=== PATIENT | male | born 1940 | race Caucasian/White ===

== ENCOUNTER 2016-11-16 09:51 | Outpatient (CLI) | payer MEDICARE, OTHER | END 2016-11-16 10:00 | LOC: CARD 09:51 | PROVIDERS: ATTEND Nurse Practitioner | DX: I25.10 Atherosclerotic heart disease of native coronary artery without angina pectoris (principal) | CPT/HCPCS: G0463 ==

== ENCOUNTER 2016-12-27 09:01 | Outpatient (CLI) | payer MEDICARE, OTHER | END 2016-12-27 09:02 | LOC: LAB 09:01 | PROVIDERS: ATTEND Family Medicine | DX: E11.9 Type 2 diabetes mellitus without complications (principal) | CPT/HCPCS: 36415; 83036 ==

== ENCOUNTER 2017-03-27 08:45 | Outpatient (CLI) | payer MEDICARE, OTHER ==
[2017-03-27 09:39] LABS: eGFR (African) > 60; eGFR (Non-African) > 60
== END 2017-03-27 08:46 ==
LOC: LAB 08:45
PROVIDERS: ATTEND Family Medicine
DX: E11.9 Type 2 diabetes mellitus without complications (principal); E55.9 Vitamin D deficiency, unspecified; E03.9 Hypothyroidism, unspecified
CPT/HCPCS: 36415; 80053; 80061; 82306; 83036; 84443

== ENCOUNTER 2017-06-27 08:44 | Outpatient (CLI) | payer MEDICARE, OTHER | END 2017-06-27 09:02 | LOC: LAB 08:44 | PROVIDERS: ATTEND Family Medicine | DX: E03.8 Other specified hypothyroidism (principal); E11.9 Type 2 diabetes mellitus without complications | CPT/HCPCS: 36415; 83036; 84443 ==

== ENCOUNTER 2017-10-30 11:34 | Outpatient (CLI) | payer MEDICARE, OTHER ==
[2017-10-30 11:51] LABS: BASOPHILS % 0.4 (0.0-1.5); EOSINOPHILS % 1.8 % (0.0-6.8); MEAN CORPUSCULAR HEMOGLOBIN 31.9 pg (28.0-34.0); MEAN CORPUSCULAR VOLUME 93.3 fl (80.0-100.0); MONOCYTES % 8.7 % (0.0-11.0); NEUTROPHILS # 6.7 # k/uL (1.4-7.7)
[2017-10-30 12:14] LABS: eGFR (African) > 60; eGFR (Non-African) > 60
--- NOTE | 2017-10-30 12:37 | Diagnostic Imaging Report ---
JULI CORONEL [facility] [address] [facility] [address] [place], [place]. [address] Report Submission Date: Oct 30, 2017 12:13:19 PM KAIAKO KURA KAUPAPA MAORI Patient Study Name: ISABELA HAWK Date: Oct 30, 2017 11:52:29 AM KAIAKO KURA [place] MAORI Modality Type: CR Gender: M Description: CHEST : 38 Institution: [facility] Physician: JULI CORONEL Examination: PA and lateral chest. History: Evaluate lung awad. Comparison exam: None provided. Findings: PA lateral chest demonstrate a normal cardiac and mediastinal silhouette. Vascular calcifications involving the aortic arch. Parenchymal infiltrate left lower lung. Significant blunting of the posterior sulci. Osseous structures are appropriate for age. Impression: Large left base consolidation/effusion. Electronically signed on Oct 30, 2017 12:13:19 PM KAIAKO KURA [place] MAORI by: Paulie HERNDON
--- NOTE | 2017-10-30 12:38 | Diagnostic Imaging Report ---
JULI CORONEL [facility] [address] [facility] [address] [place] [address]. [id number] Report Submission Date: Oct 30, 2017 12:16:19 PM SAFETY ATTENDANT Patient Study Name: ISABELA HAWK Date: Oct 30, 2017 11:57:09 AM SAFETY ATTENDANT Modality Type: CR Gender: M Description: ABDOMEN : 38 Institution: [facility] Physician: JULI CORONEL Examination: Obstruction series History: Abdominal discomfort Findings: 2 views obtained of the abdomen. No abnormal dilation of the large or small bowel. Stool throughout the large bowel most significantly within the ascending colon. No suspicious calcification projecting over the renal fossa or the lower pelvic region. Osseous structures demonstrate degenerative changes. Patent symphysis fixation hardware. Impression: Moderate amount of stool within the ascending colon. No obstruction. Electronically signed on Oct 30, 2017 12:16:19 PM SAFETY ATTENDANT by: Paulie HERNDON
== END 2017-10-30 11:35 ==
LOC: LAB 11:34
PROVIDERS: ATTEND Family Medicine
DX: R10.10 Upper abdominal pain, unspecified (principal); R05 Cough
CPT/HCPCS: 36415; 71020; 74000; 80053; 85025

== ENCOUNTER 2017-11-06 09:40 | Outpatient (CLI) | payer MEDICARE, OTHER ==
--- NOTE | 2017-11-06 12:39 | Diagnostic Imaging Report ---
[facility] [address] [facility].[address] [address] Report Submission Date: Nov 06, 2017 12:27:21 PM CAMP BOSS Patient Study Name: ISABELA HAWK Date: Nov 06, 2017 10:28:21 AM CAMP BOSS Modality Type: CT\SR Gender: M Description: CT CHEST W/ CONTRAST : 39 Institution: [facility] Physician: JULI CORONEL Examination: CT chest History: Chest infiltrate Comparison exams: Plain film dated 30 October 2017 Technique: CT chest with contrast protocol Findings: Large left effusion with significant compressive atelectasis. Smaller degree of right base linear atelectasis and vascular congestion. Scattered emphysematous changes. Anterior mediastinum and dylan are without gross mass or pathologic adenopathy. Thoracic aorta is without evidence for aneurysm. Minimal peripheral atherosclerotic disease. Cardiac silhouette upper limits normal. No pericardial effusion. Lower neck structures and upper abdominal organs are without gross abnormality. Thoracic spine degenerative spurring. Hiatal hernia. Impression: Large left consolidation/effusion. Smaller right base infiltrate/ congestive edema. Consider left diagnostic/therapeutic thoracentesis. No thoracic aortic abnormality. Hiatal hernia. Mild cardiomegaly. Electronically signed on Nov 06, 2017 12:27:21 PM CAMP BOSS by: Paulie HERNDON
== END 2017-11-06 09:50 ==
LOC: RAD 09:40
PROVIDERS: ATTEND Family Medicine
DX: R05 Cough (principal)
CPT/HCPCS: 71260; Q9967

== ENCOUNTER 2017-11-20 12:32 | Outpatient (CLI) | payer MEDICARE, OTHER ==
--- NOTE | 2017-11-20 13:52 | Diagnostic Imaging Report ---
JULI CORONEL [facility] [address] [facility] [address] [place] [address]. [id number] Report Submission Date: Nov 20, 2017 1:48:50 PM OUTSIDE PLANT ENGINEER Patient Study Name: ISABELA HAWK Date: Nov 20, 2017 1:00:02 PM OUTSIDE PLANT ENGINEER Modality Type: CT\SR Gender: M Description: CT ABD & PELVIS W/ CON : 38 Institution: [facility] Physician: JULI CORONEL Examination: CT Abdomen/pelvis History: Abdominal discomfort Comparison exams: CT chest dated 06 November 2017 Technique: CT Abdomen/pelvis with IV protocol. Findings: Liver demonstrates mild diffuse low attenuation. No central lesion. Spleen, adrenals, pancreas, kidneys and gallbladder are without gross irregularity. No abnormal enhancement. No gallstones. Mild renal cortical cyst. No suspicious calcifications. Ureters are nondilated in their course of the abdomen and pelvis. No central calcifications. Bladder margins within normal limits. Abdominal aorta demonstrates mild peripheral atherosclerotic disease. No aneurysm. Numerous periaortic lymph nodes associated with inflammatory changes. Cardiac silhouette is not enlarged. Pericardial thickening. Bowel unopacified limiting evaluation. No abnormal dilation. Stool within the large bowel limiting sensitivity. No free fluid. Appendix not visualized. Few sigmoid diverticula. No adjacent inflammation. Hiatal hernia. Osseous structures demonstrate degenerative changes. Lumbar curvature to the left. Pubic bone fusion. Lung bases demonstrates moderate to large sized left pleural effusion. Remaining lung awad demonstrates emphysematous changes and parenchymal scarring. Impression: Periaortic adenopathy and inflammation. No evidence for aortic aneurysm or dissection. No evidence for acute upper abdominal organ inflammatory process. Fatty liver. No gallstone. Renal cortical cysts. No suspicious calcifications. No abnormal ureteric dilation. No abnormal bowel dilation or inflammation. Hiatal hernia. Continued large left pleural effusion. Electronically signed on Nov 20, 2017 1:48:50 PM OUTSIDE PLANT ENGINEER by: Paulie HERNDON
== END 2017-11-20 12:33 ==
LOC: RAD 12:32
PROVIDERS: ATTEND Family Medicine
DX: R14.0 Abdominal distension (gaseous) (principal)
CPT/HCPCS: 74177; Q9967

== ENCOUNTER 2017-12-29 19:45 | Emergency (ER) | payer MEDICARE, OTHER ==
--- NOTE | 2017-12-29 20:03 | ED Physician Documentation ---
General Adult - HISTORIAN Historian: patient - HPI Stated Complaint: sob, lung cancer Chief Complaint: General Adult Onset: hours Timing: still present Severity: moderate Further Comments: yes (Pt is a 77 yo male with Stage IV lung cancer, dx'd last month. Pt had thought he only had pneumonia. Pt has a catheter into his pleural space on the L side so that he can drain pleural fluid at home. Tonight they drained 500 cc's fluid, but pt's felt that this was an incomplete drainage, since it is much less than they had been draining. She thinks a lot of fluid is still in the pleural space. Pt had trouble breathing service captain. He also c/o throat swelling and difficulty swallowing, which has been going on since he had bronchoscopy in the past weeks. He says it is difficult to swallow anything. Pt appears depressed and frustrated. He's talking about pulling his drain out and wonders if "somebody could kill me." Asked if he were suicidal, pt appeared to regret making that remark. He stated that he is to have a great-great grandson in a couple of months, and he wanted us [medical personnel] to keep him around for that.) - ROS CONST: other (malaise, depression) EYES/ENT: sore throat (difficulty swallowing s/p bronchoscopies) CVS/RESP: chest pain (L sided pain at drain to pleural space), shortness of breath GI/: none MS/SKIN/LYMPH: none NEURO/PSYCH: depression - PAST HX Past History: other (Stage IV lung cancer, DM, Thyroid d/o) Other History: other (ortho surgery, stents) Allergies/Adverse Reactions: Allergies Allergy/AdvReac Type Severity Reaction Status Date / Time No Known Allergies Allergy Unverified 12/29/17 20:51 Home Medications: Ambulatory Orders Medication Instructions Recorded Acetaminophen [Pain Relief Extra 500 mg PO PRN PRN 12/29/17 Strength] Cyclobenzaprine HCl 5 mg PO Q8H PRN 12/29/17 Folic Acid [Folvite] 1 mg PO DAILY 12/29/17 LORazepam [Ativan] 0.5 mg PO PRN PRN 12/29/17 Morphine Sulfate [Morphine Sulfate 100 mg PO Q12H PRN 12/29/17 ER] Omeprazole [Prilosec] 40 mg PO DAILY 12/29/17 - SOCIAL HX Smoking History: non-smoker - FAMILY HX Family History: No - REVIEWED ASSESSMENTS Nursing Assessment Reviewed: Yes Vitals Reviewed: Yes Progress - Progress Progress: CXR: Examination of the chest in PA and lateral views demonstrates a left pleural effusion with blunting of the costophrenic angle. There is apparent left chest tube extending to the medial aspect of lung to level of aortic arch. Right lung is clear. There are old bilateral rib fractures. IMPRESSION: Left pleural effusion that appears decreased when compared to the house admin film from a CT abdomen and pelvis on 11/20/2017. Left pleural catheter. Old bilateral rib fractures. NS 500 cc IVF Zofran 4 mg IV Dilaudid 1 mg IV x 2 Ativan 1 mg IV Fentanyl 50 mcg IV Transfer to [facility]. Wesley. ED Results Lab/Radiology - Orders Orders: ED Orders Category Date Time Status CHEST 2VIEW [RAD] Stat Exams 12/29/17 Ordered BLOOD CULTURE Stat Lab 12/29/17 Ordered CBC/PLATELET/DIFF Routine Lab 12/29/17 Ordered CMP Routine Lab 12/29/17 Ordered General Adult Physical Exam - PHYSICAL EXAM GENERAL APPEARANCE: moderate distress EENT: pharynx normal NECK: normal inspection, supple RESPIRATORY: no resp distress, rales (L base), other (L chest wall tenderness, drain in place) CVS: reg rate & rhythm, heart sounds normal ABDOMEN: soft, no organomegaly, normal bowel sounds BACK: normal inspection, no CVA tenderness SKIN: warm/dry, normal color EXTREMITIES: non-tender, normal range of motion, no evidence of injury, no edema NEURO: oriented X3, motor nml, sensation nml, depressed mood/affect Discharge Clincal Impression: SOB (shortness of breath), Stage IV lung cancer Referrals: Stephanie Brown MD [Primary Care Provider] - Condition: Stable Disposition: XFER SHT-TRM HOSP Decision to Admit: NO Decision Time: 21:40
[2017-12-29 20:08] LABS: BASOPHILS % 0.5 (0.0-1.5); EOSINOPHILS % 1.1 % (0.0-6.8); MEAN CORPUSCULAR HEMOGLOBIN 31.5 pg (28.0-34.0); MONOCYTES % 9.2 % (0.0-11.0); NEUTROPHILS # 6.4 # k/uL (1.4-7.7)
[2017-12-29] MEDS ORDERED: ONDANSETRON HCL/PF 4 MG/ 2ML VIAL IVP ONE (20:25)
[2017-12-29] MEDS ORDERED: HYDROmorphone HCL/PF 2 MG/ML DISP.SYRIN IVP ONE (20:25)
[2017-12-29 20:29] LABS: eGFR (African) > 60; eGFR (Non-African) > 60
[2017-12-29] MEDS ORDERED: ONDANSETRON HCL/PF 4 MG/ 2ML VIAL ONE (20:29)
[2017-12-29] MEDS: HYDROmorphone HCL/PF 2 MG/ML DISP.SYRIN ONE ×2 (20:32→20:46)
[2017-12-29] MEDS ORDERED: 0.9 % SODIUM CHLORIDE 500 ML IV ONE (20:34)
[2017-12-29] MEDS ORDERED: LORazepam 2 MG/ML VIAL ONE (21:23)
[2017-12-29] MEDS ORDERED: LORazepam 2 MG/ML VIAL IVP ONE (21:24)
[2017-12-29] MEDS ORDERED: fentaNYL CITRATE/PF 100 MCG/ 2ML AMP ONE (21:38)
[2017-12-29] MEDS ORDERED: fentaNYL CITRATE/PF 100 MCG/ 2ML AMP IVP ONE (21:38)
[2017-12-29 21:54] VITALS: BP 152/83
--- NOTE | 2017-12-30 06:49 | Diagnostic Imaging Report ---
MALIKA MILAN [facility] [address] [facility].[address] [address] Report Submission Date: Dec 29, 2017 8:32:18 PM LEAD RETAIL SALES ASSOCIATE Patient Study Name: ISABELA HAWK Date: Dec 29, 2017 8:15:12 PM LEAD RETAIL SALES ASSOCIATE Modality Type: DX Gender: M Description: CHEST : 38 Institution: [facility] Physician: MALIKA MILAN PA and lateral chest CLINICAL HISTORY: Shortness of breath. Lung cancer. FINDINGS: Examination of the chest in PA and lateral views demonstrates a left pleural effusion with blunting of the costophrenic angle. There is apparent left chest tube extending to the medial aspect of lung to level of aortic arch. Right lung is clear. There are old bilateral rib fractures. IMPRESSION: Left pleural effusion that appears decreased when compared to the cutting machine operator helper film from a CT abdomen and pelvis on 11/20/2017. Left pleural catheter. Old bilateral rib fractures. Electronically signed on Dec 29, 2017 8:32:18 PM LEAD RETAIL SALES ASSOCIATE by: Osmar HERNDON
== END 2017-12-29 21:50 | disposition short-term general hospital (02) ==
LOC: ED 19:45
DX: R06.02 Shortness of breath (principal); C34.90 Malignant neoplasm of unspecified part of unspecified bronchus or lung
CPT/HCPCS: 71046; 80053; 85025; 87040; J1170; J2060; J2405; J3010; J7060; 96365; 96375; 99284; S1016